=== PATIENT | female | born 1965 | race Two or more races ===

== ENCOUNTER 2018-03-17 13:41 | Outpatient (CLI) | payer MEDICAID ==
[~2018-03-17] VITALS: Ht 154.9 cm; Wt 62.6 kg
[2018-03-17 13:56] VITALS: BP 109/58
[2018-03-17] MEDS ORDERED: No medication (13:58)
--- NOTE | 2018-03-17 15:27 | GI Initial Consult Note ---
History of Present Illness General Date patient seen: Mar 17, 2018 Time patient seen: 15:24 Referring physician: HMO Reason for Consultation: colonoscopy screening Present Illness HPI This is a 53-year-old female patient presents today for a colonoscopy screening. The patient denies any GI symptoms; denies any abdominal pain, constipation or diarrhea, nausea or vomiting. The patient denies any medical history nor surgical history. States that she is on no medication. Denies any unintentional weight loss or changes in dietary habits. No signs of abuse or neglect. Patient is not fall risk. The patient has no history of endoscopic or colonoscopy. Home Meds Reported Medications [No medication ] No Conflict Check 03/17/18 Med list reviewed/reconciled: Yes Allergies: Coded Allergies: No Known Allergies (Unverified , 03/17/18) Patient History History Provided By: Patient Past Medical History: none Past Surgical History: none Pertinent Family History: none Social History: Reports: other - Coffee or tea Review of Systems All Other Systems: negative except mentioned in HPI Physical Exam Vital Signs Date Time Temp Pulse Resp B/P (MAP) Pulse Ox O2 Delivery O2 Flow Rate FiO2 03/17/18 13:56 98.2 67 16 109/58 95 Sp02 EP Interpretation: reviewed, normal General Appearance: well appearing, no apparent distress, alert Head: normocephalic EENT: PERRL/EOMI, normal ENT inspection Neck: supple Respiratory: normal breath sounds, no respiratory distress Cardiovascular: normal rate Gastrointestinal: normal inspection, non tender, soft, normal bowel sounds, non -distended Rectal: deferred Genitourinary: no CVA tenderness Musculoskeletal: normal inspection, back normal Neurologic: normal inspection, alert, oriented x3, responsive Psychiatric: normal inspection, judgement/insight normal, memory normal Skin: normal inspection, normal color, no rash, warm/dry, palpation normal, well hydrated Lymphatic: normal inspection, no adenopathy GI: Plan Problems: (1) Colonoscopy planned Plan Colonoscopy to be scheduled pending PA, will contact patient. - CLD & (Nulytely/Suprep/Movi-Prep) prep instructions given and acknowledged by patient. - NPO @ [place] day prior procedure explained. Will follow with additional recs post procedure. Seen with Dr. New. Thank you for this patient referral. The patient was seen and examined at bedside and all new and available data was reviewed in the patients chart. I agree with the above findings, impression and plan. (Patient seen earlier today. Signature stamp does not reflect patient encounter time.). - MD Anabelle Bran AnhMegha MENA Mar 17, 2018 15:27
== END 2018-03-17 14:11 | disposition home or self-care (01) ==
LOC: PAN 13:41
DX: Z12.11 Encounter for screening for malignant neoplasm of colon (principal)
CPT/HCPCS: 99202